=== PATIENT | female | born 1970 | race Caucasian/White ===

== ENCOUNTER 2016-03-15 19:35 | Emergency (ER) | payer MEDICAID ==
[2016-03-15] MEDS ORDERED: ASPIRIN 81 MG CHEW TAB ONE (19:54)
[2016-03-15] MEDS ORDERED: ONDANSETRON 4 MG VIAL ONE (22:52)
== END 2016-03-16 00:02 | disposition home or self-care (01) ==
LOC: ER 19:35
DX: R07.2 Precordial pain (principal)
CPT/HCPCS: 36415; 71010; 80053; 82550; 83735; 84484; 85025; 85610; 85730; 93005; 96374